=== PATIENT | male | born 1970 | race Caucasian/White ===

== ENCOUNTER 2023-08-30 19:29 | Emergency (ER) | payer MEDICAID ==
[2023-08-30] MEDS ORDERED: Ondansetron ODT 4 MG TAB ONE (20:41)
[2023-08-30] MEDS ORDERED: Fioricet 325/50/40 mg Tablet PO SCH (20:45)
== END 2023-08-30 21:30 | disposition home or self-care (01) ==
LOC: CSHERS 19:29
DX: S09.90XA Unspecified injury of head, initial encounter (principal); E11.9 Type 2 diabetes mellitus without complications; W19.XXXA Unspecified fall, initial encounter
CPT/HCPCS: 70450; 71045; 80053; 83735; 84484; 85025; 93005; Q0162